=== PATIENT | male | born 1945 | race Caucasian/White ===

== ENCOUNTER → 2016-04-05 | Outpatient (REF) | payer MEDICARE ==
[2016-04-05 12:13] LABS: BLOOD UREA NITROGEN 15 MG/DL (7-18); CREATININE FOR GFR 0.91 MG/DL (0.70-1.30); GLOMERULAR FILTRATION RATE > 60.0 (>49)
== END ==
LOC: M LABDRAW1 11:39
PROVIDERS: ATTEND Orthopaedic Surgery
DX: M47.896 Other spondylosis, lumbar region (principal); M16.12 Unilateral primary osteoarthritis, left hip

== ENCOUNTER → 2016-06-26 | Outpatient (REF) | payer MEDICARE ==
[2016-06-26 10:39] LABS: BASO % 0.9 % (0.0-1.0); EOS # 0.3 K/mm3 (0.0-0.50); EOS % 5.7 % (0.0-3.0); LARGE UNSTAINED CELL # 0.1 K/mm3 (0.0-0.4); LARGE UNSTAINED CELL % 2.2 % (0.0-4.0); LYMPH # 1.4 K/mm3 (1.5-4.5); LYMPH % 24.9 % (24.0-44.0); MEAN CORPUSCULAR HEMOGLOBIN 32.7 pg (27.0-33.0); MEAN CORPUSCULAR HGB CONC 35.2 g/dl (32.0-36.5); MEAN CORPUSCULAR VOLUME 92.8 fl (80.0-96.0); MONO # 0.4 K/mm3 (0.0-0.8); MONO % 8.4 % (0.0-5.0); NEUTROPHILS # 2.9 K/mm3 (1.8-7.7); NEUTROPHILS % 57.9 % (36.0-66.0); PLATELET COUNT, AUTOMATED 197 k/mm3 (150-450); RED CELL DISTRIBUTION WIDTH 12.7 % (11.5-14.5)
[2016-06-26 10:54] LABS: ALBUMIN 3.4 GM/DL (3.2-5.2); ALBUMIN/GLOBULIN RATIO 1.06 (1.00-1.93); ALKALINE PHOSPHATASE 90 U/L (45-117); ALT/SGPT 29 U/L (12-78); ANION GAP 6 MEQ/L (8-16); AST/SGOT 16 U/L (15-37); BILIRUBIN,TOTAL 0.6 MG/DL (0.2-1.0); BLOOD UREA NITROGEN 17 MG/DL (7-18); CALCIUM LEVEL 8.5 MG/DL (8.8-10.2); CARBON DIOXIDE LEVEL 28 MEQ/L (21-32); CHLORIDE LEVEL 107 MEQ/L (98-107); CREATININE FOR GFR 0.84 MG/DL (0.70-1.30); GLOMERULAR FILTRATION RATE > 60.0 (>42); GLUCOSE, FASTING 100 MG/DL (83-110); POTASSIUM SERUM 4.3 MEQ/L (3.5-5.1); SODIUM LEVEL 141 MEQ/L (136-145); TOTAL PROTEIN 6.6 GM/DL (6.4-8.2)
== END ==
LOC: M LABDRAW1 10:13
PROVIDERS: ATTEND Orthopaedic Surgery
DX: M16.12 Unilateral primary osteoarthritis, left hip (principal)

== ENCOUNTER → 2016-08-09 | Outpatient (CLI) | payer MEDICARE ==
[~2016-08-09] MED LIST: MULT1TAB10 PO
--- NOTE | 2016-08-09 12:30 | REP ---
REASON: Arthritis. COMPARISON: 12/04/2010. FINDINGS: The superior mediastinal structures are midline. The cardiac silhouette is unremarkable in size, shape, and position. The diaphragmatic surfaces of the lungs are regular, and the costophrenic angles are clear. The pulmonary yee are clear. The imaged osseous structures are intact. IMPRESSION: There is no acute cardiopulmonary disease. No change from the prior exam. Signed by Kapil Virk DO 08/09/2016 01:43 P
[2016-08-09 13:02] LABS: MEAN CORPUSCULAR HEMOGLOBIN 32.5 pg (27.0-33.0); MEAN CORPUSCULAR HGB CONC 35.1 g/dl (32.0-36.5); MEAN CORPUSCULAR VOLUME 92.7 fl (80.0-96.0); RED CELL DISTRIBUTION WIDTH 12.6 % (11.5-14.5); WHITE BLOOD COUNT 6.6 K/mm3 (4.0-10.0)
[2016-08-09 13:11] LABS: INR 0.98
[2016-08-09 13:14] LABS: ALBUMIN/GLOBULIN RATIO 1.18 (1.00-1.93); ALKALINE PHOSPHATASE 97 U/L (45-117); ALT/SGPT 24 U/L (12-78); ANION GAP 8 MEQ/L (8-16); AST/SGOT 15 U/L (15-37); BILIRUBIN,TOTAL 0.9 MG/DL (0.2-1.0); BLOOD UREA NITROGEN 19 MG/DL (7-18); CALCIUM LEVEL 9.3 MG/DL (8.8-10.2); CARBON DIOXIDE LEVEL 29 MEQ/L (21-32); CHLORIDE LEVEL 102 MEQ/L (98-107); GLOMERULAR FILTRATION RATE > 60.0 (>42); GLUCOSE, FASTING 96 MG/DL (83-110); POTASSIUM SERUM 4.3 MEQ/L (3.5-5.1); SODIUM LEVEL 139 MEQ/L (136-145); TOTAL PROTEIN 7.4 GM/DL (6.4-8.2)
--- NOTE | 2016-08-12 00:37 | ECGEPIP ---
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
== END ==
LOC: M ADMPAT 10:51
PROVIDERS: ATTEND Orthopaedic Surgery
DX: Z01.818 Encounter for other preprocedural examination (principal); M16.12 Unilateral primary osteoarthritis, left hip; Z79.899 Other long term (current) drug therapy

== ENCOUNTER 2016-08-22 07:07 | Inpatient (IN) | payer MEDICARE ==
[2016-08-09 11:39] VITALS: BP 124/84
--- NOTE | 2016-08-16 13:24 | HPE ---
DATE OF ADMISSION: 08/22/2016 CHIEF COMPLAINT: Left hip pain. HISTORY OF PRESENT ILLNESS: This a pleasant, 71-year-old male with progressively worsening left hip pain and stiffness. He has failed to improve with conservative treatment. He has elected for surgery for his continued symptoms. He has pain with weightbearing activities in his activities of daily living. X-rays of his hip are notable for advanced osteoarthritis of the left hip joint. He has consented for a left total hip arthroplasty by Dr. Tariq Devries. Medical optimization was performed by Dr. Villarreal. ALLERGIES: NO KNOWN DRUG ALLERGIES. CURRENT MEDICATIONS: - He takes a multivitamin every day. PAST MEDICAL HISTORY: Includes no chronic medical issues. PAST SURGICAL HISTORY: Includes surgical procedure for a left zygomatic arch fracture. 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 He does not smoke and he rarely drinks alcohol. FAMILY HISTORY: Is noncontributory. REVIEW OF SYSTEMS: This patient denies chest pain, heart palpitations, cough, wheezing, difficulty breathing and shortness of breath. He denies abdominal pain, nausea, vomiting, diarrhea or constipation. He denies recent upper respiratory infection or urinary tract infection symptoms. He does complain of persistent pain in the left hip. PHYSICAL EXAMINATION: General: He is well-nourished, well-developed, in no acute distress, adult male patient. He ambulates with a slight limp favoring the left lower extremity. He is not using assistive devices. Vital signs: He is 67-3/4 inches tall, weighs 205 pounds with a temperature of 98 degrees, blood pressure 129/75, pulse of 70 and respirations 18. Neck was supple without adenopathy or jugular venous distension. There were no carotid bruits appreciated upon auscultation. Lungs were clear to auscultation without rales or wheeze throughout. Heart: Regular rate and rhythm. Abdomen: Bowel sounds were present. Extremities: Examination of the hip revealed intact skin. He had decreased range of motion and pain with internal and external rotation. The limb is neurovascularly intact. LABORATORY DATA: UA was within normal limits with a specific gravity of 1.013. Prothrombin time 13.1, INR 0.98. Glucose 96. BUN 19, creatinine 0.90. Sodium 139, potassium 4.3. CBC within normal limits. Sedimentation rate was 16. Urine culture showed no growth. Nasal and sinus culture showed normal ronald. Chest x-ray showed no acute cardiopulmonary disease processes, and EKG showed sinus bradycardia at 54 beats per minute. IMPRESSION: Symptomatic osteoarthritis of the left hip joint. PLAN: Consented for a left total hip arthroplasty by Dr. Tariq Devries.
[~2016-08-22] VITALS: Ht 170.2 cm; Wt 97.4 kg
[2016-08-22] VITALS (7 sets, daily range): BP systolic 129–162; BP diastolic 69–91
[2016-08-22] MEDS ORDERED: CelecoXIB 400 MG CAP PO ONE (07:30)
[2016-08-22] MEDS ORDERED: LR 1,000 ML IV ONE (07:30)
[2016-08-22] MEDS ORDERED: PERCOCET 5MG/325MG TAB PO ONE (07:30)
[2016-08-22] MEDS ORDERED: PREGABALIN 75 MG CAP(LYRICA) PO ONE (07:30)
[2016-08-22] MEDS: MOM 30ML SUSPENSION UDC PO SCH (09:00)
[2016-08-22] MEDS ORDERED: TRANEXAMIC ACID 100 MG/ML 10ML VIAL As Ordered ONE (10:16)
[2016-08-22] MEDS ORDERED: BUPIVACAINE/EPIN 0.25% 30 ML VIAL As Ordered ONE (10:16)
[2016-08-22] MEDS ORDERED: ceFAZolin 1GM INJ (J0690) As Ordered ONE (10:17)
[2016-08-22] MEDS ORDERED: EPINEPHrine INJ 1 MG/ML 1ML AMP As Ordered ONE (10:17)
[2016-08-22] MEDS ORDERED: ONDANSETRON 4MG/2ML VIAL (J2405) As Ordered ONE ×2 (11:12→11:54)
[2016-08-22] MEDS ORDERED: fentaNYL 100 MCG/2 ML INJECTION (J3010) As Ordered ONE ×2 (11:12→11:54)
[2016-08-22] MEDS ORDERED: PROPOFOL 200 MG/20 ML VIAL As Ordered ONE ×3 (11:12→11:55)
[2016-08-22] MEDS ORDERED: LIDOCAINE 2% INJ 100 MG/5 ML SDV (FOR ANES.) As Ordered ONE ×2 (11:12→11:54)
[2016-08-22] MEDS ORDERED: MIDAZOLAM INJ 2 MG/2 ML VIAL (J2250) As Ordered ONE ×2 (11:14→11:54)
[2016-08-22] MEDS ORDERED: ePHEDrine SULFATE 25 MG/5 ML(5MG/ML) SYRINGE As Ordered ONE (12:05)
[2016-08-22] MEDS ORDERED: PHENYLephrine HCL 500 MCG/5 ML (100MCG/ML) SYRINGE (J2370) As Ordered ONE (12:05)
[2016-08-22] MEDS ORDERED: FLEET ENEMA PR PRN (13:30)
[2016-08-22] MEDS ORDERED: ONDANSETRON 4MG/2ML VIAL (J2405) IV PRN (13:30)
[2016-08-22] MEDS ORDERED: NORTRIPTYLINE 10 MG CAP PO PRN (13:30)
[2016-08-22] MEDS ORDERED: fentaNYL 100 MCG/2 ML INJECTION (J3010) IV PRN (13:30)
[2016-08-22] MEDS ORDERED: ACETAMINOPHEN TAB 650MG DOSE (2X325MG) PO PRN ×2 (13:30)
[2016-08-22] MEDS ORDERED: PROMETHAZINE INJ 25 MG/ML VIAL (J2550) IV PRN (13:30)
[2016-08-22] MEDS ORDERED: LR 1,000 ML IV SCH (13:30)
[2016-08-22] MEDS ORDERED: HYDROmorphone HCL 1 MG/ML SYRINGE (J1170) IV PRN ×2 (13:30)
[2016-08-22] MEDS ORDERED: PERCOCET 5MG/325MG TAB PO PRN ×2 (13:30)
[2016-08-22] MEDS ORDERED: CYCLOBENZAPRINE 10 MG TAB PO PRN (13:30)
[2016-08-22] MEDS: D5W/LR 1,000 ML IV SCH ×2 (13:30→23:30)
[2016-08-22] MEDS: PERCOCET 5MG/325MG TAB PO PRN ×2 (15:00→21:03)
--- NOTE | 2016-08-22 15:11 | CR ---
DATE: 08/22/2016 CHIEF COMPLAINT: 71-year-old gentleman with history of arthritis who is status post left hip surgery by Dr. Devries. Medicine was consulted for medical management. HISTORY OF PRESENT ILLNESS: This is a pleasant 71-year-old gentleman with no significant past medical history, denies heart disease, diabetes, does not take any medication, who had elective left hip surgery by Dr. Devries today. Patient states that he "wore out" his hip and therefore had elective surgery today. Hospitalist was consulted for medical management. Patient is resting comfortably in the post anesthesia care (PAC) unit. No acute distress. Awake, alert, conversing with family without difficulty. No nausea, tolerable pain after surgery. REVIEW OF SYSTEMS: 10-point review of systems negative and described in the history of present illness (HPI). PAST MEDICAL HISTORY: Significant for none. SURGICAL HISTORY: None other than the new elective left hip surgery. Patient has no known drug allergies. MEDICATION FROM HOME: Is as follows; - multivitamin one tablet once a day FAMILY MEDICAL HISTORY: Noncontributory at this time. SOCIAL HISTORY: Patient denies smoking or drug abuse. Occasionally, socially drinks alcohol but not dependent on them. PHYSICAL EXAMINATION: His temperature is 98.1, heart rate is 66, respiratory rate 18, saturating 95% on room air. Blood pressure is 136/86. HEENT: Normocephalic. No trauma noted. Inspection of the eyes, nose, and throat is within normal limits. Pupils equal, round and reactive to light and accommodation. Mucous is moist. NECK: Is supple. No tracheal deviation. CARDIAC: S1, S2, regular rate and rhythm. Pulses present. LUNGS: Equal air entry. Did not hear any wheezes, rales, or rhonchi. ABDOMEN: Is soft, nontender. Bowel sounds present. LOWER EXTREMITIES: Patient has sequential compression devices (SCDs) bilaterally. Patient is currently awake, alert, and oriented times three. Cranial nerves grossly intact. Motor and sensory intact. Normal mood and affect for current situation. Family at the bedside. DIAGNOSTIC STUDY: Patient had blood work done in 07/2016 which showed WBC, hemoglobin and hematocrit (H and H), and platelets all within normal. Complete metabolic profile which is normal, except for glucose of 138, BUN of 19. Lipase and amylase within normal. Coagulation studies within normal for PT/INR. UA was negative for urinary tract infection. Although there was a large amount of mucus and bacteria, a small amount, but WBC was 20-30. The leukocyte esterase was negative. Nitrite was negative as well. Patient did receive empiric antibiotic for surgery and currently asymptomatic. Urine culture showed no growth. Patient also had a chest x-ray done on 08/09/2016 and, as per radiology, showed no acute cardiopulmonary disease. ASSESSMENT/PLAN: This is a pleasant 71-year-old gentleman with significant past medical history of arthritis, who had elective left hip surgery by Dr. Devries. Hospitalist was consulted for medical management, but patient has no past medical history, currently doing well postsurgery. Denies of any symptoms such as chest pain, shortness of breath, abdominal pain, or diarrhea or dysuria. PROBLEMS: 1. Arthritis, status post surgery by Dr. Devries of the left hip. We will defer further management such as anticoagulation, pain management, and antibiotic therapy to Dr. Devries. 2. Arthritis. Pain management as per Dr. Devries. 3. Deep venous thrombosis (DVT) prophylaxis as per surgery. Currently has sequential compression devices (SCDs). BENNETT
[2016-08-22] MEDS ORDERED: WARFARIN SOD 1 MG TAB PO SCH (17:00)
[2016-08-22] MEDS ORDERED: WARFARIN SOD 2.5 MG TAB PO SCH (17:00)
[2016-08-22] MEDS: DOCUSATE SODIUM 100 MG CAP PO SCH (21:02)
[2016-08-22] MEDS: PREGABALIN 50 MG CAP (LYRICA) PO SCH (21:02)
[2016-08-23 02:00] VITALS: BP 140/65
[2016-08-23 06:00] VITALS: BP 120/58
[2016-08-23] MEDS: PERCOCET 5MG/325MG TAB PO PRN ×2 (06:08→21:24)
[2016-08-23 06:54] LABS: MEAN CORPUSCULAR HEMOGLOBIN 32.4 pg (27.0-33.0); MEAN CORPUSCULAR HGB CONC 35.1 g/dl (32.0-36.5); MEAN CORPUSCULAR VOLUME 92.5 fl (80.0-96.0); RED CELL DISTRIBUTION WIDTH 12.7 % (11.5-14.5); WHITE BLOOD COUNT 12.9 K/mm3 (4.0-10.0)
[2016-08-23 06:55] LABS: INR 1.27
[2016-08-23 07:49] LABS: ANION GAP 10 MEQ/L (8-16); BLOOD UREA NITROGEN 21 MG/DL (7-18); CALCIUM LEVEL 7.9 MG/DL (8.8-10.2); CARBON DIOXIDE LEVEL 23 MEQ/L (21-32); CHLORIDE LEVEL 104 MEQ/L (98-107); CREATININE FOR GFR 1.02 MG/DL (0.70-1.30); GLOMERULAR FILTRATION RATE > 60.0 (>42); GLUCOSE, FASTING 146 MG/DL (83-110); MAGNESIUM LEVEL 2.1 MG/DL (1.8-2.4); POTASSIUM SERUM 4.1 MEQ/L (3.5-5.1); SODIUM LEVEL 137 MEQ/L (136-145)
--- NOTE | 2016-08-23 08:31 | REP ---
Clinical: Status post left hip replacement. Technique: AP and cross-table lateral views. Findings: The patient is noted to be status post left hip arthroplasty with normal appearance and positioning to the femoral and acetabular components. Overlying postsurgical changes are appreciated. Impression: Normal status post left hip arthroplasty. Signed by Kiran Gray MD 08/23/2016 08:22 A
[2016-08-23] MEDS ORDERED: CelecoXIB (CeleBREX) 100 MG CAP PO ONE (09:00)
[2016-08-23] MEDS: MIRALAX *UNIT DOSE* 17GM PACKET PO SCH (09:42)
[2016-08-23] MEDS: MOM 30ML SUSPENSION UDC PO SCH (09:42)
[2016-08-23] MEDS: PREGABALIN 50 MG CAP (LYRICA) PO SCH ×2 (09:43→21:23)
[2016-08-23] MEDS: DOCUSATE SODIUM 100 MG CAP PO SCH (09:43)
[2016-08-23 10:00] VITALS: BP 123/78
--- NOTE | 2016-08-23 10:48 | RO ---
DATE OF PROCEDURE: 08/22/2016 PREOPERATIVE DIAGNOSIS: Left hip osteoarthritis. POSTOPERATIVE DIAGNOSIS: Left hip osteoarthritis. PROCEDURE PERFORMED: Left total hip replacement. SURGEON: Dr. Tariq Devries. SUPERVISOR BLOOD: Velvet Khan PA-C ANESTHESIA: Spinal. ESTIMATED BLOOD LOSS: Less than 500 mL replaced with crystalloid. COMPLICATIONS: No complications. COMPONENTS USED: Include DePuy Medina hip system size 6 femoral component, +1.5 neck length, 36 mm acetabular liner, 36 mm stainless hip ball, 56 mm acetabular component, apex hole eliminator. CONSENT: Reviewed in detail with the patient including a christian discussion of the pathology involved, the surgery proposed, alternatives including doing nothing, risks including but not limited to pain, failure, infection, bleeding, blood loss, incomplete relief of symptoms, dislocation, infection, need for more surgery, blood clots and other issues. The patient agrees to proceed. DESCRIPTION OF PROCEDURE: Identified in the holding area. Site side verified. Brought to the operating room and spinal anesthesia was administered. He was positioned in the lateral decubitus position for exposure of the left hip. Once I and the cap inspector were comfortable with the patient's positioning, he was sterilely prepped and draped. Time-out was accomplished. Next, incision outlined with a marking pen, infiltrated with 0.25% Marcaine with epinephrine. I stood on the patient's posterior, Ms Khan on the patient's anterior. Incision made with a 21-blade knife developed down through skin and subcuticular tissues to the lateral fascia. Bovie cautery was utilized for hemostasis. The lateral fascia was sharply divided using Parra scissor exposing the abductor mechanism. Abductor was divided at the 2-o'clock position and dissection continued along the femoral neck exposing the femoral head milking the capsule. Next, a tie suture was placed in the anterior aspect of the abductor mechanism for later repair and the abductor mechanism was released off the anterior aspect of the trochanter leaving a cuff of tissue for later repair for a modified Hardinge approach. Dissection continued inferiorly splitting the vastus lateralis and capsule allowing palpation of the lesser trochanter. Next physician pizza hut assistant Bill assisted applying traction and external rotation while I utilized the dislocation hook to dislocate the hip. Next, proximal femur was opened using the canal dispatcher service chief followed by the canal finding reamer followed by the lateralizing reamer. Next, conical reamers were utilized up through a size 5. Next, broaches were then utilized to a size 5 broach, however, I felt that a larger size would apply. A six 6 broach fit more appropriately. Next, these components were removed. Anterior and posterior retractors were installed exposing the acetabulum. The labrum was removed using hot knife. The floor of the acetabulum was cleared. Transverse acetabular ligament was released, labrum was removed. Next hemispherical reamers were utilized to ream through a size 55 mm. I then trialled with a 56. This fit a appropriately and was stable. Next, irrigation was accomplished. Non-trial 56 acetabulum was installed using the targeting device and the mallet. I verified the component within the floor of the acetabulum and placed the apex hole eliminator. Non- trial 36 mm polyethylene liner installed. Attention turned back to the femoral side. A trialled stem size 6 high offset was installed, +1.5 neck length. 36 mm trial hip ball was installed. The hip was reduced placed through a range of motion including internal rotation and flexion and external rotation and extension. The hip was stable. Next the trial components were then removed. Non-trial femoral component was obtained. Irrigation was accomplished. Non-trial femoral component was implanted. +1.5 neck length 36 mm femoral head was installed and tamped into place. Next, hip was reduced again to place through a range of motion and found to be stable. Soft tissue tension was appreciated to be adequate. Once this was accomplished, irrigation was accomplished including irrigation with TXA solution which was allowed to stand for a minute. Next, this was then evacuated. The capsule and abductor mechanism were reapproximated using interrupted stitch including to the cuff tissue on the greater trochanter. Next, interrupted stitch as well as Stratafix running stitch were utilized to reapproximate the lateral fascia. Once this was accomplished, the Stepan fascia and dermis were reapproximated with interrupted stitch. Pernio dressing was then applied. Once this was accomplished, the drapes were taken down. The Mumtaz table was disassembled and the patient was moved to the supine position, moved to the hospital bed in good condition. Leg lengths at the conclusion of the case appeared to be equal. The patient was moved to recovery room in good condition. For further details please refer to the medical record. HELENA Khan and myself were present and stayed for the entirety case. For further details please refer to medical record.
[2016-08-23] MEDS: SENOKOT S TAB PO SCH ×2 (13:08→21:23)
[2016-08-23 14:00] VITALS: BP 128/70
--- NOTE | 2016-08-23 14:30 | IPN ---
DATE: 08/23/2016 The patient seen and examined. Status post surgery yesterday. No acute events overnight. Denies any fever or chills, chest pain, pressure or discomfort. Reported the pain to be within tolerable limits, around 4 out of 10. VITAL SIGNS: Temperature 97.9, pulse 81, respirations 18, blood pressure 123/78, pulse oximetry 91% on room air. LABORATORY: WBC 12.9, H and H 13.7 over 39, platelets 206. Chemistries: Sodium 137, potassium 4.1, chloride 104, bicarbonate 23, BUN 21, creatinine 1.02. PHYSICAL EXAMINATION: GENERAL: Patient alert and oriented times three in no acute distress. HEENT: Normocephalic, atraumatic. PULMONARY: Bilateral clear to auscultation. CARDIAC: Regular rate and rhythm. Normal S1, S2. ABDOMEN: Soft. Nontender. Positive bowel sounds. EXTREMITIES: No edema of bilateral lower extremities. ASSESSMENT AND PLAN: This is a 71-year-old gentleman with past medical history of osteoarthritis here with elective hip surgery by Dr. Devries who lives at home alone. Medicine consulted for medical management. PROBLEMS: 1. Osteoarthritis. Status post left hip arthroplasty by Dr. Tariq Devries. Deep vein thrombosis (DVT) prophylaxis, pain regimen, bowel regimen and activity status as per orthopedic team. The patient on Coumadin for DVT prophylaxis. Continue physical therapy. 2. DVT prophylaxis. On Coumadin as per primary team. DISPOSITION: Pending physical therapy.
[2016-08-23] MEDS ORDERED: WARFARIN SOD 5 MG TAB PO ONE (17:00)
[2016-08-23 22:00] VITALS: BP 169/85
[2016-08-24 06:00] VITALS: BP 145/77
[2016-08-24 06:22] LABS: MEAN CORPUSCULAR HEMOGLOBIN 32.7 pg (27.0-33.0); MEAN CORPUSCULAR VOLUME 93.4 fl (80.0-96.0); RED CELL DISTRIBUTION WIDTH 12.5 % (11.5-14.5); WHITE BLOOD COUNT 12.3 K/mm3 (4.0-10.0)
[2016-08-24] MEDS: PERCOCET 5MG/325MG TAB PO PRN (06:23)
[2016-08-24 06:32] LABS: INR 1.38
[2016-08-24 06:45] LABS: ANION GAP 6 MEQ/L (8-16); BLOOD UREA NITROGEN 19 MG/DL (7-18); CALCIUM LEVEL 8.4 MG/DL (8.8-10.2); CARBON DIOXIDE LEVEL 28 MEQ/L (21-32); CHLORIDE LEVEL 100 MEQ/L (98-107); CREATININE FOR GFR 0.95 MG/DL (0.70-1.30); GLOMERULAR FILTRATION RATE > 60.0 (>42); GLUCOSE, FASTING 118 MG/DL (83-110); MAGNESIUM LEVEL 2.5 MG/DL (1.8-2.4); POTASSIUM SERUM 3.7 MEQ/L (3.5-5.1); SODIUM LEVEL 134 MEQ/L (136-145)
[2016-08-24] MEDS: SENOKOT S TAB PO SCH (08:11)
[2016-08-24] MEDS: MIRALAX *UNIT DOSE* 17GM PACKET PO SCH (08:11)
[2016-08-24] MEDS: MOM 30ML SUSPENSION UDC PO SCH (08:11)
[2016-08-24] MEDS: PREGABALIN 50 MG CAP (LYRICA) PO SCH (08:11)
[2016-08-24] MEDS ORDERED: PERC5TAB12 PO (09:52)
[2016-08-24] MEDS ORDERED: COUM2.5T17 PO (09:52)
--- NOTE | 2016-08-24 15:53 | IPN ---
DATE: 08/24/2016 Patient seen and examined. No acute events overnight. Patient doing well. Denies any chest pain, pressure, or discomfort. Reported surgical pain within tolerable limits. VITAL SIGNS: Temperature 98.3, pulse 64, respirations 17, blood pressure 145/77, pulse oximetry 96% on room air. LABORATORY DATA: WBC 12.3, hemoglobin and hematocrit 13.3/38, platelets 163. Chemistry: Sodium 134, potassium 3.7, chloride 100, bicarbonate 28, BUN 19, creatinine 0.95. PHYSICAL EXAMINATION: Patient alert and oriented times three in no acute distress. HEENT: Normocephalic, atraumatic. PULMONARY: Bilaterally clear to auscultation. CARDIAC: Regular rate and rhythm. Normal S1, S2. ABDOMEN: Soft and nontender. Positive bowel sounds. EXTREMITIES: No edema, bilateral lower extremities. ASSESSMENT AND PLAN: This is a 71-year-old gentleman with underlying medical history of osteoarthritis, here with elective hip surgery by Dr. Devries. Lived at home alone prior to this. Medicine consulted for medical management. 1. Osteoarthritis, status post left hip arthroplasty by Dr. Tariq Devries. Deep vein thrombosis (DVT) prophylaxis, pain regimen, bowel regimen, and activity status as per orthopedics. Patient on Coumadin for DVT prophylaxis. 2. Physical therapy, DVT prophylaxis. Patient on Coumadin as per primary team. DISPOSITION: Physical therapy. Discharge as per primary team. Addendum Note: Informed by nursing staff patient fever 101 prior to DC. Patient asymptomatic with no respiratory or urinary complaints. D/W ortho team likely inflammatory response from surgery. Primary team comfortable with DC. patient instructed to keep close monitoring at home. return if fever persisted or became symptomatic MTDD
[2016-08-24] MEDS ORDERED: WARFARIN SOD 7.5 MG TAB PO ONE (17:00)
--- NOTE | 2016-08-28 14:48 | DSES ---
DATE OF ADMISSION: 08/22/2016 DATE OF DISCHARGE: 08/24/2016 ATTENDING PHYSICIAN: Dr. Tariq Devries ADMITTING DIAGNOSIS: Left hip osteoarthritis. DISCHARGE DIAGNOSIS: Left hip avascular necrosis and osteoarthritis status post left total hip arthroplasty. HISTORY OF PRESENT ILLNESS: The patient is a 71-year-old male with progressively worsening left hip pain and stiffness. He failed to improved with conservative measures so he elected for a left total hip arthroplasty with Dr. Devries. OPERATION PERFORMED: Left total hip arthroplasty. HOSPITAL COURSE: The patient underwent a left total hip arthroplasty under spinal anesthesia which was uneventful. His hospital course was without complication and he was up with physical therapy per their protocol, weightbearing as tolerated on the left lower extremity. The patient was discharged on oral pain medications and he was instructed to resume his preoperative medications and diet. He will be weightbearing as tolerated on the left lower extremity. He will take his Coumadin and use his thromboembolic-deterrent stockings for 30 days postoperatively to prevent deep vein thrombosis. He will followup in our office in 12-14 days or sooner if there is any increased pain, drainage, bleeding, redness, numbness and tingling into his leg, fever greater than 101 degrees, or any other concerns. Please see medical record for additional details. [email or web address]
== END 2016-08-24 15:40 | disposition home health service (06) | DRG 470 ==
LOC: M OR 07:07 → M MS5PR 15:15
PROVIDERS: ADMIT Orthopaedic Surgery; ATTEND Orthopaedic Surgery
PROC: 0SRB04A Replacement of Left Hip Joint with Ceramic on Polyethylene Synthetic Substitute, Uncemented, Open Approach (ICD-10-PCS; principal; 2016-08-22 09:00)
DX: M16.12 Unilateral primary osteoarthritis, left hip (principal); R50.82 Postprocedural fever

== ENCOUNTER → 2016-09-02 | Outpatient (REF) | payer MEDICARE ==
[~2016-09-02] MED LIST changes: +COUM2.5T17 PO; +PERC5TAB12 PO
[2016-09-02 15:23] LABS: INR 1.39
== END ==
LOC: M LAB REF 14:41
PROVIDERS: ATTEND Nurse Practitioner Family
DX: Z51.81 Encounter for therapeutic drug level monitoring (principal); Z79.01 Long term (current) use of anticoagulants

== ENCOUNTER → 2016-09-05 | Outpatient (CLI) | payer MEDICARE ==
[2016-09-05 14:56] LABS: INR 1.34
== END ==
LOC: M LAB 14:09
PROVIDERS: ATTEND Physician Assistant Surgical
DX: Z51.81 Encounter for therapeutic drug level monitoring (principal); Z79.01 Long term (current) use of anticoagulants

== ENCOUNTER 2017-10-08 10:36 | Day surgery (SDC) | payer MEDICARE ==
[2017-10-08] MEDS ORDERED: PROPOFOL 200 MG/20 ML VIAL As Ordered ×2 (12:23→14:15)
== END 2017-10-08 13:13 | disposition home or self-care (01) ==
LOC: M OPP 10:36
DX: Z12.11 Encounter for screening for malignant neoplasm of colon (principal); Z86.010 Personal history of colon polyps; D12.4 Benign neoplasm of descending colon; D12.3 Benign neoplasm of transverse colon; K64.0 First degree hemorrhoids; K57.30 Diverticulosis of large intestine without perforation or abscess without bleeding; M19.90 Unspecified osteoarthritis, unspecified site; Z96.642 Presence of left artificial hip joint; F17.220 Nicotine dependence, chewing tobacco, uncomplicated
CPT/HCPCS: 45385

== ENCOUNTER 2022-07-31 12:59 | Day surgery (SDC) | payer MEDICARE ==
[~2022-07-31] VITALS: Ht 170.2 cm; Wt 97.8 kg
[~2022-07-31 12:59] MED LIST changes: +ACETYLCHOLINE OPHTH SOLN 1% 2ML (MIOCHOL-E) As Ordered ONE; +BSS IRRIG/VANCO(10MG)/TOBRA(5MG)/EPINEPH(1:1000-0.5CC)500ML BAG-ORONLY IR ONE; +CEFUROXIME 1MG/0.1ML INTRACAMERAL INJ As Ordered ONE; +CYCLOPENTOLATE 1% OPHTH SOLN 2ML BTL OD SCH; +DUOVISC (0.50ML VISCOAT/0.85ML PROVISC) OPHTH KIT As Ordered ONE; +LIDOCAINE 1% SDV 5ML VIAL As Ordered ONE; +LIDOCAINE 3.5 % 1ML OPHTH TOPICAL GEL OU ONE; +MIDAZOLAM INJ 2MG/2ML VIAL As Ordered ONE; +OFLOXACIN 0.3 % (OCUFLOX) OPTH SOL 5ML OD ONE; +PHENYLEPHRINE 10% OPHTH SOL 5ML OD PRN; +PHENYLEPHRINE 2.5% OPHTH SOL 2ML OD SCH; +TROPICAMIDE 1% OPHTH SOLN 15ML OD SCH; +VITMTA PO; +fentaNYL 100 MCG/2 ML INJECTION As Ordered ONE
[2022-07-31 15:43] VITALS: BP 168/78; TEMP 98.6; O2SAT 96
== END 2022-07-31 15:52 | disposition home or self-care (01) ==
LOC: M SDC 12:59
PROVIDERS: ATTEND Ophthalmology
DX: H25.11 Age-related nuclear cataract, right eye (principal); H40.811 Glaucoma with increased episcleral venous pressure, right eye; F17.220 Nicotine dependence, chewing tobacco, uncomplicated
CPT/HCPCS: 66183; 66987; C1783; J0697; J2250; J3010; V2632

== ENCOUNTER 2022-09-04 11:36 | Day surgery (SDC) | payer MEDICARE ==
[~2022-09-04] VITALS: Ht 167.6 cm; Wt 95.3 kg
[~2022-09-04 11:36] MED LIST changes: -ACETYLCHOLINE OPHTH SOLN 1% 2ML (MIOCHOL-E) As Ordered ONE; -CYCLOPENTOLATE 1% OPHTH SOLN 2ML BTL OD SCH; +CYCLOPENTOLATE 1% OPHTH SOLN 2ML BTL OS SCH; -DUOVISC (0.50ML VISCOAT/0.85ML PROVISC) OPHTH KIT As Ordered ONE; -MIDAZOLAM INJ 2MG/2ML VIAL As Ordered ONE; -OFLOXACIN 0.3 % (OCUFLOX) OPTH SOL 5ML OD ONE; +OFLOXACIN 0.3 % (OCUFLOX) OPTH SOL 5ML OS ONE; -PHENYLEPHRINE 10% OPHTH SOL 5ML OD PRN; +PHENYLEPHRINE 10% OPHTH SOL 5ML OS PRN; -PHENYLEPHRINE 2.5% OPHTH SOL 2ML OD SCH; +PHENYLEPHRINE 2.5% OPHTH SOL 2ML OS SCH; -TROPICAMIDE 1% OPHTH SOLN 15ML OD SCH; +TROPICAMIDE 1% OPHTH SOLN 15ML OS SCH; -fentaNYL 100 MCG/2 ML INJECTION As Ordered ONE
[2022-09-04] MEDS ORDERED: MIDAZOLAM INJ 2MG/2ML VIAL As Ordered ONE (14:06)
[2022-09-04 14:33] VITALS: BP 170/85; TEMP 97.8; O2SAT 96
== END 2022-09-04 14:52 | disposition home or self-care (01) ==
LOC: M SDC 11:36
PROVIDERS: ATTEND Ophthalmology
DX: H25.12 Age-related nuclear cataract, left eye (principal); H40.812 Glaucoma with increased episcleral venous pressure, left eye
CPT/HCPCS: 66183; 66987; C1769; C1783; J0697; J2250; V2632

== ENCOUNTER 2023-04-02 09:38 | Day surgery (SDC) | payer MEDICARE ==
[~2023-04-02] VITALS: Ht 170.2 cm; Wt 97.5 kg
[2023-04-02] MEDS: NS 1,000 ML IV ONE (06:00)
[~2023-04-02 09:38] MED LIST changes: -BSS IRRIG/VANCO(10MG)/TOBRA(5MG)/EPINEPH(1:1000-0.5CC)500ML BAG-ORONLY IR ONE; -CEFUROXIME 1MG/0.1ML INTRACAMERAL INJ As Ordered ONE; -CYCLOPENTOLATE 1% OPHTH SOLN 2ML BTL OS SCH; -LIDOCAINE 1% SDV 5ML VIAL As Ordered ONE; -LIDOCAINE 3.5 % 1ML OPHTH TOPICAL GEL OU ONE; -OFLOXACIN 0.3 % (OCUFLOX) OPTH SOL 5ML OS ONE; -PHENYLEPHRINE 10% OPHTH SOL 5ML OS PRN; -PHENYLEPHRINE 2.5% OPHTH SOL 2ML OS SCH; +THERTAB52 PO; -TROPICAMIDE 1% OPHTH SOLN 15ML OS SCH
[2023-04-02] MEDS ORDERED: propofoL 200 MG/20 ML VIAL As Ordered ONE (12:00)
[2023-04-02] MEDS ORDERED: LIDOCAINE 2% 100MG/5ML SDV (FOR ANES.) As Ordered ONE (12:00)
[2023-04-02 12:19] VITALS: TEMP 96.9
[2023-04-02 12:34] VITALS: BP 153/85; O2SAT 95
== END 2023-04-02 12:45 | disposition home or self-care (01) ==
LOC: M OPP 09:38
PROVIDERS: ATTEND Internal Medicine Gastroenterology
DX: Z86.010 Personal history of colon polyps (principal); D12.3 Benign neoplasm of transverse colon; K64.0 First degree hemorrhoids; K57.30 Diverticulosis of large intestine without perforation or abscess without bleeding; F17.220 Nicotine dependence, chewing tobacco, uncomplicated